=== PATIENT | female | born 1990 | race American Indian/Alaskan Native ===

== ENCOUNTER 2017-12-27 07:47 | Emergency (ER) | payer BC ==
[2017-12-27 07:55] VITALS: BP 119/63
[2017-12-27 08:19] LABS: Basophils % (Auto) 0.3 % (0.0-1.8); Eosinophils # (Auto) 0.1 K/mm3 (0.0-0.4); Eosinophils % (Auto) 0.9 % (0.0-4.3); Hematocrit 36.2 % (30.3-42.9); Hemoglobin 12.3 gm/dl (10.1-14.3); Lymphocytes % (Auto) 18.3 % (13.4-35.0); Mean Corpuscular HGB Conc 34 % (30-34); Mean Corpuscular Hemoglobin 29 pg (28-32); Mean Corpuscular Volume 87 fl (79-97); Monocytes # (Auto) 0.4 K/mm3 (0.0-0.8); Monocytes % (Auto) 4.1 % (0.0-7.3); Platelet Count 252 K/mm3 (140-440); Red Blood Count 4.19 M/mm3 (3.65-5.03); Red Cell Distribution Width 13.6 % (13.2-15.2)
[2017-12-27 08:51] LABS: Color,Urine Straw (Yellow)
[2017-12-27 08:52] LABS: Bilirubin,Urine Negative (Negative); Blood,Urine Negative (Negative)
--- NOTE | 2017-12-27 11:10 | Ultrasound Report ---
OB ULTRASOUND History abdominal pain during , vaginal spotting. Technique: Transabdominal ultrasound with Doppler interrogation. Comparison: None. Gestation: Single Position: Cephalic Amniotic Fluid: Within normal limits JESSICA = not measured cm Placenta: Anterior Placental Grade: 0 Heart Rate: 141 BPM Cervical length: 3.5 cm (Normal > 3 cm) NEUROANATOMY VISUALIZED: Choroid Plexus Cisterna Magnum Cerebellum Lateral Ventricle ANATOMY VISUALIZED: Stomach Kidneys Bladder Diaphragm Heart 3 Vessel Cord Abd. Cord Insert SPINE VISUALIZED: Limited spine due to position The following are not demonstrated due to maternal body habitus or lie: Four-chamber heart and spine. BPD: 4.0 cm = 18 w 1 d HC: 15.4 cm = 18 w 3 d AC: 13.4 cm = 18 w 6 d FL: 2.4 cm = 17 w 2 d HC/AC Ratio: 1.15 Cephalic Index: 78.2 Estimated Weight: 225 grams Clinical age = 18 w 0 d EDC: 05/30/18 US Gest. Age = 18 w 1 d EDC: 05/29/18 IMPRESSION: Viable, single intrauterine as described. No acute abnormality is detected. Poor visualization of the four-chamber heart and spine due to position.
--- NOTE | 2017-12-27 12:06 | Emergency Department Report ---
ED Female HPI - General Chief complaint: Abdominal Pain Stated complaint: 18 WEEKS/HURTING Time Seen by Provider: 12/27/17 11:56 Source: patient Mode of arrival: Ambulatory Limitations: No Limitations - History of Present Illness Initial comments: Patient is 27 years old female 4 para 2 with one ectopic . Patient presented to the ER complaining of abdominal cramping this completely resolved by now she stated that she had spotting 2 days ago which is clear now. Patient denied any nausea or vomiting. No vaginal bleeding. - Related Data Allergies Allergy/AdvReac Type Severity Reaction Status Date / Time No Known Allergies Allergy Unverified 12/27/17 07:50 ED Review of Systems ROS: Stated complaint: 18 WEEKS/HURTING Other details as noted in HPI Comment: All other systems reviewed and negative Constitutional: denies: chills, fever Respiratory: denies: cough, orthopnea Cardiovascular: denies: chest pain, palpitations Gastrointestinal: abdominal pain. denies: nausea, vomiting, diarrhea, constipation, hematemesis, hematochezia Genitourinary: denies: dysuria Neurological: denies: headache, weakness, numbness, paresthesias, confusion ED Past Medical Hx - Past Medical History Previous Medical History?: No - Surgical History Past Surgical History?: No - Social History Smoking Status: Never Smoker Substance Use Type: None ED Physical Exam - General Limitations: No Limitations General appearance: alert, in no apparent distress - Head Head exam: Present: atraumatic, normocephalic - Eye Eye exam: Present: normal appearance - ENT ENT exam: Present: normal exam - Neck Neck exam: Present: normal inspection, full ROM. Absent: tenderness, meningismus, lymphadenopathy - Respiratory Respiratory exam: Present: normal lung sounds bilaterally. Absent: respiratory distress, wheezes, rales, rhonchi, chest wall tenderness, accessory muscle use, decreased breath sounds, prolonged expiratory - Cardiovascular Cardiovascular Exam: Present: regular rate, normal rhythm, normal heart sounds - GI/Abdominal GI/Abdominal exam: Present: soft, normal bowel sounds. Absent: distended, tenderness, guarding, rebound, rigid - Extremities Exam Extremities exam: Present: normal inspection, full ROM, normal capillary refill - Back Exam Back exam: Present: normal inspection, full ROM. Absent: tenderness, CVA tenderness (R), CVA tenderness (L), muscle spasm, paraspinal tenderness, vertebral tenderness - Neurological Exam Neurological exam: Present: alert, oriented X3, CN II-XII intact, normal gait, reflexes normal - Skin Skin exam: Present: warm, intact, normal color ED Course Vital Signs 12/27/17 07:50 Temperature 98.3 F Pulse Rate 88 Respiratory 18 Rate Blood Pressure 119/63 O2 Sat by Pulse 99 Oximetry ED Medical Decision Making - Lab Data Result diagrams: 12/27/17 08:01 - Radiology Data Radiology results: report reviewed Referring Physician: GIRISH HAYNSE Patient Name: RADHA MARTIN Date of : 1990 Sex: Female Report Date: 2017-12-27 Report Status: Finalized Findings [facility] [address] [place] [address] Ultrasound Report Signed Patient: RADHA MARTIN MR#: [id number] : 1990 Acct:[id number] Age/Sex: 27 / F ADM Date: 12/27/17 Loc: ED Attending Dr: Ordering Physician: GIRISH HAYNES MD Date of Service: 12/27/17 Procedure(s): US OB >= 14 weeks Fetus Accession Number(s): [id number] cc: GIRISH HAYNES MD OB ULTRASOUND History abdominal pain during , vaginal spotting. Technique: Transabdominal ultrasound with Doppler interrogation. Comparison: None. Gestation: Single Position: Cephalic Amniotic Fluid: Within normal limits JESSICA = not measured cm Placenta: Anterior Placental Grade: 0 Heart Rate: 141 BPM Cervical length: 3.5 cm (Normal > 3 cm) NEUROANATOMY VISUALIZED: Choroid Plexus Cisterna Magnum Cerebellum Lateral Ventricle ANATOMY VISUALIZED: Stomach Kidneys Bladder Diaphragm Heart 3 Vessel Cord Abd. Cord Insert SPINE VISUALIZED: Limited spine due to position The following are not demonstrated due to maternal body habitus or lie: Four-chamber heart and spine. BPD: 4.0 cm = 18 w 1 d HC: 15.4 cm = 18 w 3 d AC: 13.4 cm = 18 w 6 d FL: 2.4 cm = 17 w 2 d HC/AC Ratio: 1.15 Cephalic Index: 78.2 Estimated Weight: 225 grams Clinical age = 18 w 0 d EDC: 05/30/18 US Gest. Age = 18 w 1 d EDC: 05/29/18 IMPRESSION: Viable, single intrauterine as described. No acute abnormality is detected. Poor visualization of the four-chamber heart and spine due to position. Transcribed By: TTR Dictated By: SHELLI KELLEY JR, MD Electronically Authenticated By: SHELLI KELLEY JR, MD Signed Date/Time: 12/27/17 104 DD/ 1044 TD/TT: 12/27/17 104 Critical care attestation.: If time is entered above; I have spent that time in minutes in the direct care of this critically ill patient, excluding procedure time. ED Disposition Clinical Impression: Abdominal pain affecting Disposition: DC-01 TO HOME OR SELFCARE Is pt being admited?: No Condition: Stable Instructions: Abdominal Pain in (ED) Referrals: PRIMARY CARE, [Primary Care Provider] - 3-5 Days
== END 2017-12-27 12:12 | disposition home or self-care (01) ==
LOC: ED 07:47
DX: O26.892 Other specified pregnancy related conditions, second trimester (principal); R10.9 Unspecified abdominal pain; Z3A.18 18 weeks gestation of pregnancy
CPT/HCPCS: 36415; 76805; 81001; 84702; 85025; 86850; 86900; 86901

== ENCOUNTER 2018-03-18 00:41 | Outpatient (CLI) | payer BC ==
[2018-03-18 00:51] VITALS: BP 122/78
[2018-03-18] MEDS ORDERED: LACTATED RINGERS 1,000 ML ONE (01:02)
[2018-03-18] MEDS ORDERED: LACTATED RINGERS 1,000 ML IV SCH (01:17)
== END 2018-03-18 01:47 | disposition home or self-care (01) ==
LOC: TRG 00:41
PROVIDERS: ATTEND Obstetrics & Gynecology
DX: O26.893 Other specified pregnancy related conditions, third trimester (principal); R10.9 Unspecified abdominal pain; Z3A.29 29 weeks gestation of pregnancy; Z87.891 Personal history of nicotine dependence
CPT/HCPCS: 96360; J7120

== ENCOUNTER 2018-04-02 12:25 | Outpatient (CLI) | payer BC ==
[2018-04-02] MEDS ORDERED: LACTATED RINGERS 500 ML IV ONE ×2 (12:35→14:20)
[2018-04-02 15:06] LABS: Bacteria,Urine 1+ /HPF (Negative); Bilirubin,Urine NEG (Negative); Blood,Urine NEG (Negative); Color,Urine Yellow (Yellow); Mucus,Urine 2+ /HPF
[2018-04-02 15:08] LABS: Amphetamine Screen,Urine PRESUMPTIVE NEGATIVE; Benzodiazepines Screen,Urine PRESUMPTIVE NEGATIVE; Cannabinoid Screen,Urine PRESUMPTIVE NEGATIVE; Cocaine Screen,Urine PRESUMPTIVE NEGATIVE; Methadone Screen,Urine PRESUMPTIVE NEGATIVE; Opiate Screen,Urine PRESUMPTIVE NEGATIVE
[2018-04-02] MEDS: BRETHINE SUB-Q SCH ×3 (15:14→17:23)
[2018-04-02 16:46] VITALS: BP 133/82
[2018-04-02] MEDS ORDERED: CELESTONE SOLUSPAN IM ONE (17:00)
== END 2018-04-02 17:37 | disposition home or self-care (01) ==
LOC: TRG 12:25
PROVIDERS: ATTEND Obstetrics & Gynecology
DX: O47.03 False labor before 37 completed weeks of gestation, third trimester (principal); Z3A.31 31 weeks gestation of pregnancy
CPT/HCPCS: 36415; 59025; 80307; 81001; 82731; 96360; 96361; 96372; J0702; J3105; J7120

== ENCOUNTER 2018-04-03 17:11 | Outpatient (CLI) | payer BC ==
[2018-04-03] MEDS ORDERED: CELESTONE SOLUSPAN IM ONE (18:22)
== END 2018-04-03 17:45 | disposition home or self-care (01) ==
LOC: TRG 17:11
PROVIDERS: ATTEND Obstetrics & Gynecology
DX: O47.03 False labor before 37 completed weeks of gestation, third trimester (principal); Z3A.31 31 weeks gestation of pregnancy
CPT/HCPCS: 96372; J0702

== ENCOUNTER 2018-07-03 08:39 | Day surgery (SDC) | payer BC ==
--- NOTE | 2018-07-03 07:37 | Short Stay Summary ---
Short Stay Documentation Date of service: 07/03/18 Narrative H&P: 28y/o with undesired fertility. The patient is aware of other contraceptive options. She elects to undergo permanent sterilization. - History Principal diagnosis: Unwanted fertility Past Medical History: other (ovarian cyst) Past Surgical History: No surgical history Social history: single - Allergies and Medications Current Medications: Allergies No Known Allergies Allergy (Verified 07/02/18 11:40) Home Medications Medication Instructions Recorded Confirmed Last Taken Type No Known Home Medications [No 06/07/18 07/02/18 Unknown History Reported Home Medications] - Physical exam General appearance: no acute distress Integumentary: no rash HEENT: Atraumatic Lungs: Clear to auscultation Breasts: deferred Heart: Regular rate Gastrointestinal: normal Female Genitourinary: deferred Rectal Exam: deferred Extremities: no ischemia - Brief post op/procedure progress note Date of procedure: 07/03/18 Pre-op diagnosis: unwanted fertility Post-op diagnosis: same Procedure: Laparoscopic bilateral tubal ligation with Filshie clips Anesthesia: GETA Surgeon: LEXIS ACOSTA Estimated blood loss: none Pathology: none Condition: stable - Hospital course Hospital course: The patient was admitted the day of surgery and underwent a laparoscopic bilateral tubal ligation. Please see operative note for details of surgery. Postoperative course was uneventful. - Disposition Condition at discharge: Good Disposition: DC-01 TO HOME OR SELFCARE Short Stay Discharge Plan Activity: other (pelvic rest for 1 week) Diet: regular Additional Instructions: Follow-up is not required Follow-up as needed Prescriptions: Ibuprofen [Motrin] 800 mg PO Q8HR PRN #60 tablet PRN Reason: Pain, Mild (1-3) oxyCODONE /ACETAMINOPHEN [Percocet 5/325] 1 tab PO Q6HR PRN #20 tablet PRN Reason: Pain
[~2018-07-03 08:39] MED LIST: LACTATED RINGERS 1,000 ML IV SCH; MARCAINE 0.5% INFILTRATI ONE; NEURONTIN PO NR; VERSED IV NR
[2018-07-03] MEDS ORDERED: NACL BACTERIOSTATIC INFILTRATI ONE (09:25)
[2018-07-03 10:02] LABS: Hematocrit 32.2 % (30.3-42.9); Hemoglobin 10.5 gm/dl (10.1-14.3)
[2018-07-03] MEDS ORDERED: PROVENTIL IH NR (10:30)
[2018-07-03] MEDS ORDERED: XYLOCAINE MPF 2% ONE (10:36)
[2018-07-03] MEDS ORDERED: ZEMURON IV ONE (10:36)
[2018-07-03] MEDS ORDERED: DILAUDID ONE (10:37)
[2018-07-03] MEDS ORDERED: DIPRIVAN 10 MG/ML IV ONE (10:37)
[2018-07-03] MEDS ORDERED: DILAUDID IV PRN (10:59)
--- NOTE | 2018-07-03 10:59 | Anesthesia Day of Surgery ---
Anesthesia Day of Surgery - Day of Surgery Patient Examined: Yes Patient H&P Reviewed: Yes Patient is NPO: Yes
--- NOTE | 2018-07-03 10:59 | Anesthesia Consultation ---
Anesthesia Consult and Med Hx Date of service: 07/03/18 - Airway Anesthetic Teeth Evaluation: Good (upper braces) ROM Head & Neck: Adequate Mental/Hyoid Distance: Adequate Mallampati Class: Class II Intubation Access Assessment: Probably Good - Pulmonary Exam CTA: Yes - Cardiac Exam Cardiac Exam: RRR - Pre-Operative Health Status ASA Pre-Surgery Classification: ASA2 Proposed Anesthetic Plan: General - Pulmonary Hx Smoking: Yes (black and milds) Hx Asthma: No Hx Respiratory Symptoms: Yes (current URI with nasal congestion and nonproductive cough) SOB: No (no wheezing/CP/SOB) - Cardiovascular System Hx Hypertension: No Hx Heart Attack/AMI: No - Central Nervous System Hx Seizures: No CVA: No Hx Psychiatric Problems: No - Gastrointestinal Hx Gastroesophageal Reflux Disease: No - Endocrine Hx Renal Disease: No Hx Liver Disease: No Hx Insulin Dependent Diabetes: No Hx Non-Insulin Dependent Diabetes: No Hx Thyroid Disease: No - Hematic Hx Anemia: Yes (Past hx) - Other Systems Hx Alcohol Use: Yes (Occas) Hx Cancer: No Hx Obesity: No - Additional Comments Anesthesia Medical History Comments: No prior GA. No FHx anesthetic complications. Will give pre-op albuterol neb.
[2018-07-03] MEDS ORDERED: DECADRON ONE (11:44)
[2018-07-03] MEDS ORDERED: ZOFRAN ONE (11:44)
[2018-07-03] MEDS ORDERED: ROBINUL ONE (11:52)
[2018-07-03] MEDS ORDERED: BLOXIVERZ ONE (11:52)
[2018-07-03] MEDS ORDERED: NACL 0.9% IR ONE (12:00)
[2018-07-03] MEDS ORDERED: MARCAINE 0.5% INFILTRATI ONE ×2 (12:00)
--- NOTE | 2018-07-03 12:12 | Operative Report ---
Operative Report Operative Report: Date of surgery: 07/03/2018 Preoperative diagnosis: Unwanted fertility Postoperative diagnosis: Same as above Procedure: Laparoscopic bilateral tubal ligation with Filshie clips Surgeon: Loan Trammell M.D. Anesthesia: General endotracheal anesthesia Estimated blood loss: Minimal Findings: Normal uterus tubes and ovaries Indication: 28-year-old with undesired fertility. The patient elected for sterilization. Procedure: The patient was taken to the operating room and given general endo tracheal anesthesia without complication. The patient is prepped and draped in a normal sterile fashion. A bivalve speculum was placed in the patient's vagina and a single-tooth tenaculum was placed on the anterior lip of the cervix .A uterine acorn manipulato rwas placed, and the bivalve speculum was then removed. Attention was then turned to the patient's abdomen where a 5 mm infraumbilical skin incision was then made. A Veress needle was placed and peritoneal entry was verified water-filled syringe. Insufflation of the peritoneal cavity was performed with CO2 gas. A 5 mm trocar was placed and the laparoscope was then inserted. The patient was then placed in Trendelenburg. A 7 mm suprapubic skin incision was then made. Under direct visualization a 7 mm trocar was then placed. General survey of the patient's abdomen revealed normal uterus tubes and ovaries. The fallopian tube was then followed out to the fimbriated end. A Filshie clip was placed, on the ampullary portion of the tube. An additional Filshie clip was placed on the fallopian tube. This was performed on the contralateral side as well. The 7 mm trocar was then removed. The pneumoperitoneum was then released. The 5 mm trocar laparoscope was then removed. The skin incisions were then closed with 4-0 Monocryl. The incisions were injected with quarter percent Marcaine. Dressings were applied to the incision. The vaginal instruments were then removed atraumatically. Then successfully extubated and taken to the recovery room. All sponge laps and needle counts were correct 2.
[2018-07-03] MEDS ORDERED: TORADOL ONE (12:37)
[2018-07-03] MEDS ORDERED: PERCOCET 5/325 PO PRN (13:31)
--- NOTE | 2018-07-03 13:34 | Post Anesthesia Evaluation ---
- Post Anesthesia Evaluation Patient Participated: Yes Airway Patent: Yes Stable Respiratory Function: Yes Nausea/Vomiting: No Temp > 96.8F: Yes Pain Manageable: Yes Adequeate Hydration: Yes Anesthesia Complications: No
[2018-07-03 14:21] VITALS: BP 130/82
== END 2018-07-03 14:10 | disposition home or self-care (01) ==
LOC: OR 08:39
PROVIDERS: ATTEND Obstetrics & Gynecology
DX: Z30.2 Encounter for sterilization (principal); F17.210 Nicotine dependence, cigarettes, uncomplicated; D64.9 Anemia, unspecified; E66.9 Obesity, unspecified; Z68.26 Body mass index [BMI] 26.0-26.9, adult; Z72.89 Other problems related to lifestyle; Z79.899 Other long term (current) drug therapy; Z83.3 Family history of diabetes mellitus; Z82.49 Family history of ischemic heart disease and other diseases of the circulatory system
CPT/HCPCS: 36415; 58671; 81025; 85014; 85018; J1100; J1170; J1885; J2250; J2405; J2704; J2710; J7120

== ENCOUNTER 2018-08-15 06:43 | Day surgery (SDC) | payer BC ==
[~2018-08-15 06:43] MED LIST changes: -MARCAINE 0.5% INFILTRATI ONE; +NACL BACTERIOSTATIC INFILTRATI ONE
[2018-08-15] MEDS ORDERED: ANCEF/STERILE WATER 2 GM/20 ML 2 GM/20 ML SYRINGE IV ONE (06:45)
[2018-08-15] MEDS ORDERED: XYLOCAINE 1% 20 mL ONE (08:23)
[2018-08-15] MEDS ORDERED: DIPRIVAN 10 MG/ML IV ONE (08:23)
[2018-08-15] MEDS ORDERED: ZOFRAN ONE (08:23)
[2018-08-15] MEDS ORDERED: SUBLIMAZE ONE (08:23)
[2018-08-15] MEDS ORDERED: ZEMURON IV ONE (08:23)
[2018-08-15] MEDS ORDERED: MARCAINE 0.5% INFILTRATI ONE ×2 (08:23→09:57)
[2018-08-15] MEDS ORDERED: XYLOCAINE MPF 2% ONE (08:23)
[2018-08-15] MEDS ORDERED: DECADRON ONE (08:24)
--- NOTE | 2018-08-15 08:39 | Anesthesia Consultation ---
Anesthesia Consult and Med Hx Date of service: 08/15/18 - Airway Anesthetic Teeth Evaluation: Good (braces, no rubber bands) ROM Head & Neck: Adequate Mental/Hyoid Distance: Adequate Mallampati Class: Class I Intubation Access Assessment: Good - Pulmonary Exam CTA: Yes - Cardiac Exam Cardiac Exam: RRR - Pre-Operative Health Status ASA Pre-Surgery Classification: ASA2 Proposed Anesthetic Plan: General - Pulmonary Hx Smoking: Yes (black and milds 2/day) Hx Asthma: No COPD: No - Cardiovascular System Hx Hypertension: No Hx Heart Attack/AMI: No Hx Percutaneous Transluminal Coronary Angioplasty (PTCA): No - Central Nervous System Hx Seizures: No CVA: No - Gastrointestinal Hx Gastroesophageal Reflux Disease: No - Endocrine Hx Renal Disease: No Hx Liver Disease: No Hx Insulin Dependent Diabetes: No Hx Non-Insulin Dependent Diabetes: No Hx Thyroid Disease: No - Hematic Hx Anemia: Yes (w/ hx prior transfusion) - Other Systems Hx Alcohol Use: Yes (Occas) Hx Obesity: No - Additional Comments Anesthesia Medical History Comments: No hx anesthetic complications.
--- NOTE | 2018-08-15 08:39 | Anesthesia Day of Surgery ---
Anesthesia Day of Surgery - Day of Surgery Patient Examined: Yes Patient H&P Reviewed: Yes Patient is NPO: Yes
[2018-08-15] MEDS ORDERED: DILAUDID IV PRN (08:40)
[2018-08-15] MEDS ORDERED: XYLOCAINE 1% 20 mL INFILTRATI ONE (09:57)
[2018-08-15] MEDS ORDERED: NACL 0.9% IR ONE (09:58)
[2018-08-15] MEDS ORDERED: DILAUDID ONE (10:01)
--- NOTE | 2018-08-15 11:53 | Short Stay Summary ---
Short Stay Documentation Date of service: 08/15/18 - History Principal diagnosis: umbilical hernia H&P: obtained from office - Allergies and Medications Current Medications: Allergies No Known Allergies Allergy (Verified 08/09/18 10:28) Home Medications Medication Instructions Recorded Confirmed Last Taken Type Ibuprofen [Motrin] 800 mg PO Q8HR PRN #60 tablet 07/03/18 08/15/18 08/09/18 Rx Active Medications Celecoxib (Celebrex) 200 mg PO PREOP NR Stop: 08/15/18 23:00 Last Admin: 08/15/18 07:54 Dose: 200 mg Documented by: Gabapentin (Neurontin) 300 mg PO PREOP NR Stop: 08/15/18 23:00 Last Admin: 08/15/18 07:54 Dose: 300 mg Documented by: Hydromorphone HCl (Dilaudid) 0.5 mg IV Q10MIN PRN PRN Reason: Pain , Severe (7-10) Stop: 08/15/18 20:00 Lactated Ringer's (Lactated Ringers) 1,000 mls @ 100 mls/hr IV DIRECT TIFFANY Last Admin: 08/15/18 08:10 Dose: 100 mls/hr Documented by: Midazolam HCl (Versed) 2 mg IV PREOP NR Stop: 08/15/18 23:00 Last Admin: 08/15/18 08:24 Dose: 2 mg Documented by: - Brief post op/procedure progress note Date of procedure: 08/15/18 Pre-op diagnosis: umbilical hernia Post-op diagnosis: other (incarcerated umbilical hernia) Procedure: Robotic assisted umbilical hernia repair with mesh Anesthesia: GETA, local Findings: moderate amount of omentum incarcerated in hernia. 1.5 cm hernia defect Surgeon: JULIEN STEVENSON Estimated blood loss: minimal Pathology: none Condition: stable - Hospital course Hospital course: Pt observed in PACU and discharged to home when criteria met - Disposition Condition at discharge: Good Short Stay Discharge Plan Activity: other (no heavy lifting, no driving if taking prescription pain medications) Wound: open to air Follow up with: PRIMARY CARE,MD [Primary Care Provider] - 7 Days JULIEN STEVENSON DO [Staff Physician] - 14 Days Prescriptions: HYDROcodone/APAP 5-325 [Vendor 5/325] 1 each PO Q4HR PRN #20 tablet PRN Reason: Pain
[2018-08-15] MEDS ORDERED: NORCO 5/325 PO PRN (12:24)
[2018-08-15] MEDS ORDERED: NORCO 5/325 ONE (12:33)
[2018-08-15 13:24] VITALS: BP 124/70
--- NOTE | 2018-08-16 11:17 | Operative Report ---
PREOPERATIVE DIAGNOSIS: Umbilical hernia. POSTOPERATIVE DIAGNOSIS: Incarcerated umbilical hernia. PROCEDURE: Robotic-assisted umbilical hernia repair with mesh. ANESTHESIA: General endotracheal anesthesia, local. FINDINGS: Moderate amount of omentum incarcerated in hernia, 1.5 cm hernia defect. SURGEON: Elizabeth Ponce DO ESTIMATED BLOOD LOSS: Minimal. PATHOLOGY: None. CONDITION: Stable. DISPOSITION: To PACU. HISTORY OF PRESENT ILLNESS AND INDICATION: The patient is a 28-year-old female who was seen in the General Surgery office for complaints of abdominal pain. She was found to have an umbilical hernia containing fat, which was partially reducible. Due to the patient's significant pain at this area, a repair was recommended. I discussed all risks, benefits, alternatives to surgery with the patient. The robotic, laparoscopic, open approaches were discussed as well as expectations for pain management. All questions were answered. Consent was obtained. PROCEDURE IN DETAIL: The patient was identified in the preoperative area, taken back to the operating room, placed on the operating table in supine position. After anesthesia was induced, bilateral arms were tucked and all bony prominences were padded appropriately. The abdomen was prepped and draped in the usual sterile fashion. A time-out performed. Local anesthetic was infiltrated into all skin incision sites. A small incision was made in the right upper quadrant approximately 2-3 fingerbreadths below the costal margin through which a Veress needle was inserted. The Veress needle positioning was confirmed using the saline drop test and the abdomen insufflated. The insufflation pressures were high despite this attempt to advance the Veress needle into the abdomen and therefore this approach was aborted. The incision was elongated and through this, a 5 mm Optiview trocar was advanced under direct visualization until the abdomen was entered. The abdomen was insufflated to 15 mmHg and the abdomen was then inspected. Upon inspection of the abdomen, there was no underlying injury to any of the abdominal contents. There were omental adhesions to the anterior abdominal wall obscuring the location of the hernia. At this point, an additional 12 mm balloon trocar was placed in the right lateral abdomen and an 8 mm trocar placed in the right lower quadrant. These were placed under direct visualization. The 5 mm right upper quadrant trocar was then removed and replaced with an 8 mm robotic trocar under direct visualization. The robot was then docked in the usual fashion. A monopolar scissor was placed in arm #1 and a fenestrated bipolar grasper in arm #2. Both instruments were advanced under direct visualization and the surgeon was moved to the console. The adhesions from the omentum to the anterior abdominal wall were carefully taken down using electrocautery. Once the adhesions were taken down, the umbilical hernia was easily visualized. There was incarcerated omentum in the hernia. This incarcerated omentum was carefully reduced using a combination of blunt dissection as well as sharp dissection with electrocautery. The omentum was then reduced and did appear to be a moderate amount. It was checked for hemostasis, which was carefully ensured. Omentum was placed back in anatomical position. The hernia defect was measured and was approximately 1.5 cm. Approximately 5 cm from the hernia defect, I started to create a preperitoneal flap in order to accommodate preperitoneal mesh placement. The peritoneum was scored with electrocautery and the peritoneum was attempted to be from the posterior fascia. Unfortunately, this was not easily done as the peritoneum was very thin and the posterior sheath was entered. Despite attempting this, the peritoneum did have multiple defects in it and therefore this approach was aborted. It was therefore decided to perform intraperitoneal placement of the mesh. Because the defect measured 1.5 cm, it was decided to use a 9 cm piece of composite mesh. The mesh was cut to the appropriate size and placed into the abdomen via the 12 mm port along with suture material. The hernia defect was closed using 0 V-Loc suture and this was continued to also to reapproximate the posterior rectus sheath, which was entered during the preperitoneal flap creation. The mesh was then affixed to the center of the hernia defect and sutured circumferentially using 2-0 V-Loc continuous suture. The mesh did have adequate coverage of the hernia defect and was flat against the abdominal wall. Please note that the pressure was decreased to 8 mmHg in order to facilitate closure of the hernia defect and suturing end of the mesh. The robot was then undocked and the case continued laparoscopically. The surgeon was scrubbed back in. The suture material and needles were removed under direct visualization. The abdomen was once again inspected and there were no underlying injuries to any of the abdominal structures. The mesh was visualized and did lay flat. The ports were then removed under direct visualization and the 12 mm port fascia closed with [id number] 0 Vicryl suture. The skin incisions once again infiltrated with local anesthetic and the skin reapproximated using 4-0 Monocryl subcuticular stitches and skin glue. At the end of the case, all sponge, instrument and sharp counts were correct x 2. The patient was awoken from anesthesia, extubated, and taken to PACU in stable condition. JOB# [id number] MARY/LYNN
== END 2018-08-15 06:44 | disposition home or self-care (01) ==
LOC: OR 06:43
PROVIDERS: ATTEND Surgery
DX: K42.0 Umbilical hernia with obstruction, without gangrene (principal); F17.210 Nicotine dependence, cigarettes, uncomplicated; E66.9 Obesity, unspecified; Z68.32 Body mass index [BMI] 32.0-32.9, adult; Z98.51 Tubal ligation status; Z72.89 Other problems related to lifestyle; Z83.3 Family history of diabetes mellitus; Z98.890 Other specified postprocedural states; Z79.899 Other long term (current) drug therapy; Z79.01 Long term (current) use of anticoagulants; Z86.2 Personal history of diseases of the blood and blood-forming organs and certain disorders involving the immune mechanism; Z82.49 Family history of ischemic heart disease and other diseases of the circulatory system
CPT/HCPCS: 49653; 81025; A4217; C1781; J0690; J1100; J1170; J2250; J2405; J2704; J3010; J7120; S2900

== ENCOUNTER 2019-02-01 18:35 | Emergency (ER) | payer BC ==
--- NOTE | 2019-02-01 18:54 | Event Note ---
ED Screening Note Date of service: 02/01/19 Time: 18:46 ED Screening Note: 29 y/o female comes in for chest tightness today. LMP 1 year ago. Tubes tied mesh for hernia. This initial assessment/diagnostic orders/clinical plan/treatment(s) is/are subject to change based on patients health status, clinical progression and re- assessment by fellow clinical providers in the ED. Further treatment and workup at subsequent clinical providers discretion. Patient/guardian urged not to elope from the ED as their condition may be serious if not clinically assessed and managed. Initial orders include:
[2019-02-01 19:07] LABS: Basophils # (Auto) 0.1 K/mm3 (0.0-0.1); Basophils % (Auto) 0.5 % (0.0-1.8); Eosinophils # (Auto) 0.2 K/mm3 (0.0-0.4); Eosinophils % (Auto) 2.2 % (0.0-4.3); Hemoglobin 13.5 gm/dl (10.1-14.3); Lymphocytes # (Auto) 3.1 K/mm3 (1.2-5.4); Lymphocytes % (Auto) 27.7 % (13.4-35.0); Mean Corpuscular HGB Conc 34 % (30-34); Mean Corpuscular Volume 86 fl (79-97); Monocytes # (Auto) 0.6 K/mm3 (0.0-0.8); Monocytes % (Auto) 5.2 % (0.0-7.3); Platelet Count 286 K/mm3 (140-440); Red Blood Count 4.66 M/mm3 (3.65-5.03); Red Cell Distribution Width 14.1 % (13.2-15.2)
[2019-02-01] MEDS ORDERED: IBUPROFEN PO ONE (19:29)
[2019-02-01] MEDS ORDERED: PROVENTIL IH ONE (19:29)
--- NOTE | 2019-02-01 19:56 | Emergency Department Report ---
ED Chest Pain HPI - General Chief Complaint: Chest Pain Stated Complaint: WEAKNESS,CHEST TIGHT Time Seen by Provider: 02/01/19 18:46 Source: patient Mode of arrival: Ambulatory Limitations: No Limitations - History of Present Illness Initial Comments: 29 y/o female comes in for chest tightness today after visiting [employer] pt denies hx of asthma or bronchtis, there is no sob no n/v no back pain no dizziness no lightheadedness, symptoms are exacerrbated by movement and deep breathing, symptoms are relieved by rest other hx: LMP 1 year ago. Tubes tied mesh for hernia. MD Complaint: other (chest tightness ) -: Sudden Onset: during rest Pain Location: right chest Pain Radiation: none Severity: moderate Severity scale (0 -10): 4 Quality: tightness Consistency: constant Improves With: nothing Worsens With: inspiration, movement re: denies: nausea, vomting Other Symptoms: denies: cough, fever, syncope, rash, leg swelling, palpitations Treatments Prior to Arrival: none - Related Data Previous Rx's Medication Instructions Recorded Last Taken Type Ibuprofen [Motrin 800 MG tab] 800 mg PO Q8HR PRN #60 tablet 07/03/18 08/09/18 Rx HYDROcodone/APAP 5-325 [[place] 1 each PO Q4HR PRN #20 tablet 08/15/18 Unknown Rx 5/325] Naproxen [Naprosyn TAB] 500 mg PO BID PRN #30 tablet 02/01/19 Unknown Rx Allergies Allergy/AdvReac Type Severity Reaction Status Date / Time No Known Allergies Allergy Verified 02/01/19 18:49 Heart Score - HEART Score History: Slightly suspicious ED Review of Systems ROS: Stated complaint: WEAKNESS,CHEST TIGHT Other details as noted in HPI Constitutional: denies: chills, fever Eyes: denies: eye pain, eye discharge, vision change ENT: denies: ear pain, throat pain Respiratory: denies: cough, shortness of breath, wheezing Cardiovascular: chest pain. denies: palpitations, dyspnea on exertion, orthopnea, edema, syncope, paroxysmal nocturnal dyspnea Endocrine: no symptoms reported Gastrointestinal: denies: abdominal pain, nausea, vomiting, diarrhea Genitourinary: denies: urgency, dysuria, discharge Musculoskeletal: denies: back pain, joint swelling, arthralgia Skin: denies: rash, lesions Neurological: denies: headache, weakness, paresthesias Psychiatric: anxiety. denies: depression Hematological/Lymphatic: denies: easy bleeding, easy bruising ED Past Medical Hx - Past Medical History Previous Medical History?: Yes Hx Hypertension: No Hx Heart Attack/AMI: No Hx Deep Vein Thrombosis: No Hx Liver Disease: No Hx Renal Disease: No Hx Headaches / Migraines: Yes Hx Seizures: No Hx Asthma: No Hx COPD: No Hx HIV: No - Surgical History Additional Surgical History: Hernia with mesh. Tubal - Social History Smoking Status: Current Every Day Smoker Substance Use Type: None - Medications Home Medications: Home Medications Medication Instructions Recorded Confirmed Last Taken Type Ibuprofen [Motrin 800 MG tab] 800 mg PO Q8HR PRN #60 tablet 07/03/18 08/15/18 08/09/18 Rx HYDROcodone/APAP 5-325 [[place] 1 each PO Q4HR PRN #20 tablet 08/15/18 Unknown Rx 5/325] Naproxen [Naprosyn TAB] 500 mg PO BID PRN #30 tablet 02/01/19 Unknown Rx ED Physical Exam - General Limitations: No Limitations General appearance: alert, in no apparent distress - Head Head exam: Present: atraumatic, normocephalic - Eye Eye exam: Present: normal appearance, PERRL, EOMI Pupils: Present: normal accommodation - ENT ENT exam: Present: mucous membranes moist - Neck Neck exam: Present: normal inspection - Respiratory Respiratory exam: Present: normal lung sounds bilaterally, chest wall tenderness. Absent: respiratory distress, wheezes, stridor - Cardiovascular Cardiovascular Exam: Present: regular rate, normal rhythm, normal heart sounds. Absent: systolic murmur, diastolic murmur, rubs, gallop - GI/Abdominal GI/Abdominal exam: Present: soft, normal bowel sounds. Absent: distended, tenderness, guarding, rebound, bruit, hernia - Rectal Rectal exam: Present: deferred - Extremities Exam Extremities exam: Present: normal inspection, full ROM, normal capillary refill. Absent: tenderness, pedal edema, joint swelling, calf tenderness - Back Exam Back exam: Present: normal inspection, full ROM, tenderness. Absent: CVA tenderness (R), CVA tenderness (L), muscle spasm, paraspinal tenderness, vertebral tenderness, rash noted - Neurological Exam Neurological exam: Present: alert, oriented X3, CN II-XII intact, normal gait, r eflexes normal - Psychiatric Psychiatric exam: Present: normal affect, normal mood - Skin Skin exam: Present: warm, dry, intact, normal color. Absent: rash ED Course Vital Signs 02/01/19 18:46 Temperature 98.0 F Pulse Rate 72 Respiratory 20 Rate Blood Pressure 135/92 O2 Sat by Pulse 99 Oximetry ED Medical Decision Making - Lab Data Result diagrams: 02/01/19 18:54 02/01/19 18:54 Critical care attestation.: If time is entered above; I have spent that time in minutes in the direct care of this critically ill patient, excluding procedure time. ED Disposition Clinical Impression: Chest pain Qualifiers: Chest pain type: chest pain on breathing Qualified Code(s): R07.1 - Chest pain on breathing; R07.81 - Pleurodynia Disposition: LEFT AGAINST MED ADVICE Is pt being admited?: No Does the pt Need Aspirin: No Condition: Undetermined Instructions: Chest Pain (ED) Prescriptions: Naproxen [Naprosyn TAB] 500 mg PO BID PRN #30 tablet PRN Reason: pain Forms: AMA Form
[2019-02-01 20:03] LABS: Bilirubin,Urine NEG (Negative); Blood,Urine NEG (Negative); Color,Urine Yellow (Yellow); Mucus,Urine 3+ /HPF; Protein,Urine <15 mg/dL mg/dL (Negative); Urobilinogen,Urine < 2.0 mg/dL (<2.0)
[2019-02-01 20:17] LABS: Amphetamine Screen,Urine PRESUMPTIVE NEGATIVE; Benzodiazepines Screen,Urine PRESUMPTIVE NEGATIVE; Cannabinoid Screen,Urine PRESUMPTIVE NEGATIVE; Cocaine Screen,Urine PRESUMPTIVE NEGATIVE; Methadone Screen,Urine PRESUMPTIVE NEGATIVE; Opiate Screen,Urine PRESUMPTIVE NEGATIVE
[2019-02-01 20:27] LABS: INR 1.04 (0.87-1.13)
[2019-02-01 20:28] LABS: Partial Thromboplastin Time 31.7 Sec. (24.2-36.6)
--- NOTE | 2019-02-01 20:35 | XRay Report ---
CHEST 2 VIEWS INDICATION / CLINICAL INFORMATION: Chest Pain. COMPARISON: None available. FINDINGS: SUPPORT DEVICES: None. HEART / MEDIASTINUM: No significant abnormality. LUNGS / PLEURA: No significant pulmonary or pleural abnormality. No pneumothorax. ADDITIONAL FINDINGS: No significant additional findings. IMPRESSION: No acute abnormality of the chest. Signer Name: Gunner Kebede MD Signed: 02/01/2019 8:30 PM Workstation Name: [id number]
[2019-02-01 20:43] LABS: BUN/Creatinine Ratio 24; Blood Urea Nitrogen 17 mg/dL (7-17); Calcium 9.5 mg/dL (8.4-10.2); Hemolysis Index 2
[2019-02-01 21:04] VITALS: BP 125/93
[2019-02-01 21:18] LABS: Alanine Aminotransferase 10 units/L (7-56); Albumin 4.2 g/dL (3.9-5)
== END 2019-02-01 21:04 | disposition left against medical advice (07) ==
LOC: ED 18:35
DX: R07.89 Other chest pain (principal); G43.909 Migraine, unspecified, not intractable, without status migrainosus; F17.200 Nicotine dependence, unspecified, uncomplicated; Z79.899 Other long term (current) drug therapy
CPT/HCPCS: 36415; 71046; 80053; 80307; 81001; 83690; 84484; 84703; 85025; 85610; 85730; 93005; 93010

== ENCOUNTER 2019-08-07 16:58 | Emergency (ER) | payer BC ==
[2019-08-07 17:30] VITALS: BP 132/88
--- NOTE | 2019-08-07 17:41 | Event Note ---
ED Screening Note Date of service: 08/07/19 Time: 17:31 ED Screening Note: This initial assessment/diagnostic orders/clinical plan/treatment(s) is/are subject to change based on patients health status, clinical progression and re- assessment by fellow clinical providers in the ED. Further treatment and workup at subsequent clinical providers discretion. Patient/guardian urged not to elope from the ED as their condition may be serious if not clinically assessed and managed. Initial orders include:
--- NOTE | 2019-08-07 17:44 | Emergency Department Report ---
ED ENT HPI - General Chief complaint: Earache Stated complaint: LFT EAR PAIN/THROAT PAIN Source: patient Mode of arrival: Ambulatory Limitations: No Limitations - History of Present Illness Initial comments: Patient is a 29-year-old female who presents to ED complaining of throat pain 3 days. Patient describes pain as throbbing in nature, 8 out of 10 intensity, nonradiating, localized to his throat. Admits pain with swallowing and eating. Patient admits no appetite due to throat pain. Patient admits fever for the first 2 days but not at the moment. Patient denies nausea/vomiting/abdominal pain/shortness of breath/chest pain/headache. MD complaint: sore throat, ear pain Location: throat Severity: moderate Severity scale (0 -10): 9 Quality: aching Improves with: none Worsens with: swallowing - Related Data Previous Rx's Medication Instructions Recorded Last Taken Type Ibuprofen [Motrin 800 MG tab] 800 mg PO Q8HR PRN #60 tablet 07/03/18 08/09/18 Rx HYDROcodone/APAP 5-325 [[place] 1 each PO Q4HR PRN #20 tablet 08/15/18 Unknown Rx 5/325] Naproxen [Naprosyn TAB] 500 mg PO BID PRN #30 tablet 02/01/19 Unknown Rx Acetamin/Codeine 120-12Mg/5 ml 5 ml PO TID PRN 4 Days #60 ml 08/07/19 Unknown Rx [Tylenol/Codeine] Amoxicillin [Trimox CAP] 500 mg PO Q8H #21 capsule 08/07/19 Unknown Rx Nystas/Diphen/Xyl Visc/Mylanta 15 ml MM Q6H PRN #120 ml 08/07/19 Unknown Rx [Magic Mouthwash] Allergies Allergy/AdvReac Type Severity Reaction Status Date / Time No Known Allergies Allergy Verified 08/07/19 17:00 ED Dental HPI - General Chief complaint: Earache Stated complaint: LFT EAR PAIN/THROAT PAIN Source: patient Mode of arrival: Ambulatory Limitations: No Limitations - Related Data Previous Rx's Medication Instructions Recorded Last Taken Type Ibuprofen [Motrin 800 MG tab] 800 mg PO Q8HR PRN #60 tablet 07/03/18 08/09/18 Rx HYDROcodone/APAP 5-325 [[place] 1 each PO Q4HR PRN #20 tablet 08/15/18 Unknown Rx 5/325] Naproxen [Naprosyn TAB] 500 mg PO BID PRN #30 tablet 02/01/19 Unknown Rx Acetamin/Codeine 120-12Mg/5 ml 5 ml PO TID PRN 4 Days #60 ml 08/07/19 Unknown Rx [Tylenol/Codeine] Amoxicillin [Trimox CAP] 500 mg PO Q8H #21 capsule 08/07/19 Unknown Rx Nystas/Diphen/Xyl Visc/Mylanta 15 ml MM Q6H PRN #120 ml 08/07/19 Unknown Rx [Magic Mouthwash] Allergies Allergy/AdvReac Type Severity Reaction Status Date / Time No Known Allergies Allergy Verified 08/07/19 17:00 ED Review of Systems ROS: Stated complaint: LFT EAR PAIN/THROAT PAIN Other details as noted in HPI Comment: All other systems reviewed and negative ED Past Medical Hx - Past Medical History Hx Hypertension: No Hx Heart Attack/AMI: No Hx Deep Vein Thrombosis: No Hx Liver Disease: No Hx Renal Disease: No Hx Headaches / Migraines: Yes Hx Seizures: No Hx Asthma: No Hx COPD: No Hx HIV: No - Surgical History Additional Surgical History: Hernia with mesh. Tubal - Social History Smoking Status: Current Every Day Smoker Substance Use Type: Alcohol - Medications Home Medications: Home Medications Medication Instructions Recorded Confirmed Last Taken Type Ibuprofen [Motrin 800 MG tab] 800 mg PO Q8HR PRN #60 tablet 07/03/18 08/15/18 08/09/18 Rx HYDROcodone/APAP 5-325 [[place] 1 each PO Q4HR PRN #20 tablet 08/15/18 Unknown Rx 5/325] Naproxen [Naprosyn TAB] 500 mg PO BID PRN #30 tablet 02/01/19 Unknown Rx Acetamin/Codeine 120-12Mg/5 ml 5 ml PO TID PRN 4 Days #60 ml 08/07/19 Unknown Rx [Tylenol/Codeine] Amoxicillin [Trimox CAP] 500 mg PO Q8H #21 capsule 08/07/19 Unknown Rx Nystas/Diphen/Xyl Visc/Mylanta 15 ml MM Q6H PRN #120 ml 08/07/19 Unknown Rx [Magic Mouthwash] ED Physical Exam - General Limitations: No Limitations General appearance: alert, in no apparent distress - Head Head exam: Present: atraumatic, normocephalic - Eye Eye exam: Present: normal appearance - ENT ENT exam: Present: mucous membranes moist - Expanded ENT Exam Expanded Ear exam: Present: normal external inspection Mouth exam: Present: normal external inspection Teeth exam: Present: normal inspection Throat exam: Positive: tonsillar erythema, tonsillomegaly, tonsillar exudate - Neck Neck exam: Present: normal inspection, tenderness (Anterior cervical), full ROM, lymphadenopathy - Respiratory Respiratory exam: Present: normal lung sounds bilaterally. Absent: respiratory distress - Cardiovascular Cardiovascular Exam: Present: regular rate, normal rhythm. Absent: systolic murmur, diastolic murmur, rubs, gallop - GI/Abdominal GI/Abdominal exam: Present: soft, normal bowel sounds - Extremities Exam Extremities exam: Present: normal inspection - Back Exam Back exam: Present: normal inspection - Neurological Exam Neurological exam: Present: alert, oriented X3 - Psychiatric Psychiatric exam: Present: normal affect, normal mood - Skin Skin exam: Present: warm, dry, intact, normal color. Absent: rash ED Course Vital Signs 08/07/19 17:05 Temperature 98.9 F Pulse Rate 110 H Respiratory 20 Rate Blood Pressure 132/88 O2 Sat by Pulse 99 Oximetry ED Medical Decision Making - Medical Decision Making 29-year-old male presents with strep pharyngitis. ED course: Rapid strep tests ordered rapid strep test positive Fever responsive to one dose of Tylenol. Vital signs stable patient is in no acute or respiratory distress. Discussed findings with patient about the positive strep. Discussed treatment in ED with patient Discussed the patient that strep throat is contagious and to limit sharing spoons and such. Discussed with patient follow-up with primary care physician. Patient verbally states he understands and will comply to follow-up. Critical care attestation.: If time is entered above; I have spent that time in minutes in the direct care of this critically ill patient, excluding procedure time. ED Disposition Clinical Impression: Acute bacterial tonsillitis, Pharyngitis Disposition: TO HOME OR SELFCARE Is pt being admited?: No Does the pt Need Aspirin: No Condition: Stable Instructions: Pharyngitis (ED), Strep Throat (ED), Tonsillitis (ED) Additional Instructions: Make sure to follow up with the primary care physician as discussed. Take all your medications as you've been prescribed. If you have any worsening symptoms or develop new symptoms please return to ED immediately. Prescriptions: Nystas/Diphen/Xyl Visc/Mylanta [Magic Mouthwash] 15 ml MM Q6H PRN #120 ml PRN Reason: Sore Throat Amoxicillin [Trimox CAP] 500 mg PO Q8H #21 capsule Acetamin/Codeine 120-12Mg/5 ml [Tylenol/Codeine] 5 ml PO TID PRN 4 Days #60 ml PRN Reason: Pain Referrals: [facility] [Provider Group] - 3-5 Days [facility] [Provider Group] - 3-5 Days [facility] [Provider Group] - 3-5 Days [facility] [Outside] - 3-5 Days [facility] [Outside] - 3-5 Days Forms: Accompanied Note, Work/School Release Form(ED) Time of Disposition: 18:43
== END 2019-08-07 18:45 | disposition home or self-care (01) ==
LOC: ED 16:58
DX: J03.90 Acute tonsillitis, unspecified (principal); J02.9 Acute pharyngitis, unspecified; F17.200 Nicotine dependence, unspecified, uncomplicated
CPT/HCPCS: 87430; 99283

== ENCOUNTER 2019-08-09 08:31 | Emergency (ER) | payer BC ==
[2019-08-09 08:41] VITALS: BP 136/79
[2019-08-09] MEDS ORDERED: dexAMETHasone 20 MG/5 ML VIAL IM ONE (10:20)
[2019-08-09] MEDS ORDERED: PENICILLIN G BENZATHINE 1.2 MILLION UNIT/2 ML INJ IM ONE (10:20)
--- NOTE | 2019-08-09 10:30 | Emergency Department Report ---
Chief Complaint: Sore Throat Stated Complaint: SORE THROAT Time Seen by Provider: 08/09/19 10:18 - HPI History of Present Illness: 29-year-old female who was seen here 2 days ago and treated for strep pharyngitis returns with worsening throat pain. Next Patient states she has been taking oral antibiotics and has no relief. She states that Motrin does help her with the body aches and the pain. She denies difficulty swallowing, fever or any other new symptoms - ROS Review of Systems: As noted in HPI - Exam Vital Signs: Vital Signs 08/09/19 08/09/19 08:37 08:41 Temperature 97.9 F 97.9 F Pulse Rate 90 95 H Respiratory 18 18 Rate Blood Pressure 136/79 136/79 O2 Sat by Pulse 100 100 Oximetry Physical Exam: GENERAL: Alert and oriented x3, no apparent distress, Normal Gait, atraumatic. MOUTH:Mouth is well hydrated and without lesions. Tonsils erythematous and moderately swollen, Uvula midline, Tongue not elevated. Mucous membranes are moist. Posterior pharynx clear, no exudate or lesions. Patent airways. NECK: Supple. Non edematous, No lymphadenopathy or thyromegaly. No C-spine tenderness MSE screening note: Focused history and physical exam performed. Due to findings the following was ordered: ED Disposition for MSE Clinical Impression: Pharyngitis Disposition: DC-01 TO HOME OR SELFCARE Is pt being admited?: No Does the pt Need Aspirin: No Condition: Stable Instructions: Tonsillitis (ED) Additional Instructions: Make sure to follow up with the primary care physician as discussed. Continue to Take all your medications as you've been prescribed. If you have any worsening symptoms or develop new symptoms please return to ED immediately. Forms: Work/School Release Form(ED) Time of Disposition: 10:44
== END 2019-08-09 11:13 | disposition home or self-care (01) ==
LOC: ED 08:31
DX: J02.9 Acute pharyngitis, unspecified (principal)
CPT/HCPCS: 96372; 99282; J0561; J1100